=== PATIENT | male | born 1980 | race Caucasian/White ===

== ENCOUNTER → 2018-12-12 | Outpatient (CLI) | payer OTHER ==
--- NOTE | 2018-12-12 16:21 | RAD ---
Three-view study left hand Clinical indications: Pain and fracture. COMPARISON: None available. FINDINGS: There is a comminuted fracture of the midshaft of the fourth metacarpal bone. Dorsal butterfly fragment is seen. No significant displacement or angulation is evident otherwise. There is a volar plate fracture of the proximal epiphysis of the fourth middle phalanx and possibly the third middle phalanx. No lytic process is evident. No dislocation is seen. IMPRESSION: Comminuted fracture of the fourth metacarpal bone. Volar plate fracture of the fourth middle phalanx and possibly the third middle phalanx. Electronically signed by: Ck Ybarra MD (12/12/2018 4:18 PM) [facility]
== END | disposition home or self-care (01) ==
LOC: RAD 13:33
PROVIDERS: ATTEND Orthopaedic Surgery Sports Medicine
DX: S62.305A Unspecified fracture of fourth metacarpal bone, left hand, initial encounter for closed fracture (principal); X58.XXXA Exposure to other specified factors, initial encounter; Y93.89 Activity, other specified; Y92.89 Other specified places as the place of occurrence of the external cause; Y99.8 Other external cause status
CPT/HCPCS: 73130